=== PATIENT | female | born 1980 | race Caucasian/White ===

== ENCOUNTER 2023-03-30 16:24 | Emergency (ER) | payer MEDICAID, SELFPAY ==
[2023-03-30 16:38] VITALS: BP 112/58; PULSE 69; RESP 16; TEMP 37.2; O2SAT 100
== END 2023-03-30 16:47 | disposition left against medical advice (07) ==
PROVIDERS: Emergency Provider Internal Medicine Hematology & Oncology
DX: Z53.21 Procedure and treatment not carried out due to patient leaving prior to being seen by health care provider (principal)
CPT/HCPCS: 99199